=== PATIENT | female | born 1945 | race African-American/Black ===

== ENCOUNTER → 2016-12-12 | Outpatient (CLI) | payer OTHER ==
[~2016-12-12] MED LIST: AMARYL4 MG PO; CLARITIN10 M2 PO; COUMADIN 10MG T10 M1 PO; COUMADIN 5 MG TA5 M1 PO; GLUCOPHAGE500 MG PO; LEVOTHROID50 MCG PO; LOSARTAN-HCTZ1 EAC2 PO; VITAMIN D1000 UNI1 PO
== END ==
LOC: RAD 04:52
DX: R92.8 Other abnormal and inconclusive findings on diagnostic imaging of breast (principal); Z85.3 Personal history of malignant neoplasm of breast

== ENCOUNTER → 2018-07-24 | Outpatient (CLI) | payer OTHER | LOC: RAD 01:45 | DX: N64.52 Nipple discharge (principal); R92.1 Mammographic calcification found on diagnostic imaging of breast; Z85.3 Personal history of malignant neoplasm of breast ==

== ENCOUNTER → 2018-12-10 | Outpatient (CLI) | payer OTHER | LOC: RAD 01:33 | DX: R92.1 Mammographic calcification found on diagnostic imaging of breast (principal) ==

== ENCOUNTER → 2019-12-15 | Outpatient (CLI) | payer OTHER | LOC: BC 09:25 → RAD 10:30 | PROVIDERS: ATTEND Internal Medicine Hematology & Oncology | DX: Z12.31 Encounter for screening mammogram for malignant neoplasm of breast (principal) ==

== ENCOUNTER → 2020-12-15 | Outpatient (CLI) | payer OTHER | LOC: RAD 10:58 | PROVIDERS: ATTEND Internal Medicine | DX: Z12.31 Encounter for screening mammogram for malignant neoplasm of breast (principal) ==